=== PATIENT | female | born 1975 | race Caucasian/White ===

== ENCOUNTER 2022-06-06 09:35 | Day surgery (SDC) | payer BC ==
[~2022-06-06 09:35] MED LIST: Lactated Ringers 1,000 ML IV SCH
[2022-06-06] MEDS ORDERED: Propofol 200 MG/20 ML SDV ONE (10:07)
[2022-06-06] MEDS ORDERED: Lactated Ringers 1,000 ML IV SCH (12:45)
== END 2022-06-06 13:04 | disposition home or self-care (01) ==
LOC: MW.SDS 09:35
PROVIDERS: ATTEND Surgery
DX: Z12.11 Encounter for screening for malignant neoplasm of colon (principal); D12.7 Benign neoplasm of rectosigmoid junction; D12.5 Benign neoplasm of sigmoid colon; K63.89 Other specified diseases of intestine; R46.81 Obsessive-compulsive behavior; Z79.899 Other long term (current) drug therapy; Z98.890 Other specified postprocedural states
CPT/HCPCS: 45380; 45385; 81025; J2704; J7120; 00812